=== PATIENT | female | born 1990 | race Caucasian/White ===

== ENCOUNTER 2016-11-18 20:30 | Emergency (ER) | payer SELFPAY ==
[2016-11-18 23:45] LABS: microscopic required? YES
[2016-11-18 23:46] LABS: urine erythrocyte NEGATIVE (NEGATIVE)
[2016-11-19 00:41] VITALS: BP 105/77
== END 2016-11-19 00:41 | disposition home or self-care (01) ==
LOC: ED 20:30
PROVIDERS: Emergency Medicine
DX: N39.0 Urinary tract infection, site not specified (principal)
CPT/HCPCS: J1885